=== PATIENT | female | born 1995 | race Caucasian/White ===

== ENCOUNTER 2019-06-24 18:54 | Observation (INO) | payer SELFPAY | END 2019-06-24 19:30 | disposition home or self-care (01) | LOC: 8 EST LDRP 18:54 → 8 EST A/PP 19:08 | PROVIDERS: ADMIT Specialist; ATTEND Specialist | DX: O42.912 Preterm premature rupture of membranes, unspecified as to length of time between rupture and onset of labor, second trimester (principal); Z3A.27 27 weeks gestation of pregnancy | CPT/HCPCS: 99281; G0378 ==

== ENCOUNTER 2019-06-24 23:25 | Emergency (ER) | payer SELFPAY ==
[~2019-06-24] VITALS: Ht 172.7 cm; Wt 78.0 kg
[2019-06-25 11:52] VITALS: BP 118/76
== END 2019-06-25 13:32 | disposition left against medical advice (07) ==
LOC: ER 23:25
DX: O26.892 Other specified pregnancy related conditions, second trimester (principal); Z04.89 Encounter for examination and observation for other specified reasons; Z59.0 Homelessness; Z3A.24 24 weeks gestation of pregnancy
CPT/HCPCS: 99285

== ENCOUNTER 2021-02-16 19:00 | Emergency (ER) | payer SELFPAY ==
[~2021-02-16] VITALS: Ht 162.6 cm; Wt 71.0 kg
[2021-02-16 23:13] LABS: BASOPHILS % 0.2 % (0.0-2.0); EOSINOPHILS % 0.4 % (0.0-5.0); HEMATOCRIT. 26.6 % (36.0-48.0); HEMOGLOBIN. 8.9 g/dL (12.0-16.0); LYMPHOCYTES % 18.6 % (20.0-50.0); MEAN CORPUSCULAR HEMOGLOBIN 21.9 pg (28.0-32.0); MEAN CORPUSCULAR VOLUME 65.7 fL (81.0-99.0); MEAN PLATELET VOLUME 7.5 fl (7.4-10.4); MONOCYTES % 9.8 % (2.0-8.0); PLATELET 286 x1000/uL (130-400); RED BLOOD CELL COUNT 4.06 mill/uL (4.2-5.4); RED CELL DISTRIBUTION WIDTH 17.5 % (11.6-14.6)
[2021-02-16 23:18] LABS: CHLORIDE 108 mEq/L (98-107)
[2021-02-16 23:21] LABS: PROTHROMBIN TIME 10.6 sec (9.6-11.0)
[2021-02-16 23:22] LABS: ETHANOL BLOOD < 10 mg/dL
[2021-02-16 23:39] LABS: HCG SCREEN NEGATIVE
[2021-02-16 23:43] LABS: PLATELET ESTIMATE NORMAL
[2021-02-16] MEDS ORDERED: HYDROCODONE/ACETAMINOPHEN 10/325MG TABLET PO ONE (23:45)
[2021-02-16] MEDS ORDERED: ONDANSETRON 4MG ODT PO ONE (23:45)
[2021-02-17] MEDS ORDERED: POTASSIUM CHLORIDE 20MEQ TABLET SR PO SCH (00:15)
[2021-02-17] MEDS ORDERED: ACET-2708 MT (01:06)
[2021-02-17 01:30] VITALS: BP 121/79
== END 2021-02-17 02:45 | disposition home or self-care (01) ==
LOC: ER 19:00
DX: K43.9 Ventral hernia without obstruction or gangrene (principal); F32.9 Major depressive disorder, single episode, unspecified
CPT/HCPCS: 36415; 74177; 80053; 80320; 83690; 84703; 85025; 85610; 99285; Q0162; G0480